=== PATIENT | male | born 1965 | race Caucasian/White ===

== ENCOUNTER 2017-03-04 17:33 | Emergency (ER) | payer OTHER ==
[~2017-03-04] VITALS: Ht 190.5 cm; Wt 66.8 kg
[~2017-03-04 17:33] MED LIST: SULF-154 PO
[2017-03-04 17:38] VITALS: BP 199/118; PULSE 99; RESP 16; TEMP 97.9; O2SAT 95
[2017-03-04 18:04] VITALS: BP 184/114; PULSE 86; RESP 18; O2SAT 94
[2017-03-04] MEDS ORDERED: SODIUM CHLORIDE 0.9% FLUSH 10 ML FLUSH IVF PRN (18:30)
[2017-03-04] MEDS ORDERED: predniSONE 20 MG TAB PO ONE (18:30)
[2017-03-04 18:31] VITALS: RESP 18; O2SAT 93
[2017-03-04 18:33] VITALS: BP 185/111; PULSE 84; RESP 20; O2SAT 93
[2017-03-04] MEDS: RESP: ALBUTEROL 2.5 MG/IPRATROPIUM 0.5 MG NEB (SCH) INH (18:44)
--- NOTE | 2017-03-04 19:43 | RADRPT ---
EXAM DATE/TIME: 03/04/2017 19:15 [place] COMPARISON: No previous studies available for comparison. INDICATIONS : Cough, congestion and shortness of breath. MEDICAL HISTORY : None. SURGICAL HISTORY : None. ENCOUNTER: Initial ACUITY: 3 days PAIN SCORE: 0/10 LOCATION: Bilateral chest FINDINGS: PA and lateral views of the chest show extreme hyperinflation lungs. Blunting of the costophrenic ang les bilaterally. Heart is normal in size. No discrete infiltrate. Bony structures are unremarkable. CONCLUSION: 1. COPD. 2. Blunting of the costophrenic angles could relate to scarring and the degree of hyperinflation, how ever, I cannot exclude small effusions. Willy Tello Jr., MD on March 04, 2017 at 19:40 Board Certified Radiologist. This report was verified electronically.
[2017-03-04 19:53] VITALS: BP 143/82; PULSE 101; RESP 20; O2SAT 94
[2017-03-04] MEDS ORDERED: PRED20 PO (19:54)
[2017-03-04] MEDS ORDERED: ZITHTAB PO (19:54)
[2017-03-04] MEDS ORDERED: VENTAER INH (19:54)
--- NOTE | 2017-03-04 19:54 | PD ---
HPI Chief Complaint: Respiratory Symptoms Time Seen by Provider: 18:24 Travel History International Travel<30 days: No Contact w/Intl Traveler<30days: No Traveled to known affect area: No History of Present Illness HPI This 51-year-old male is complaining of shortness of breath. He has not had trouble like this before. He does have a history of smoking cigarettes and stopped about a month ago. He has not had fever or chills. He has been coughing up some yellow phlegm. He has no history of heart disease. [facility] Past Medical History Medical History: Denies Significant Hx Diminished Hearing: No Tetanus Vaccination: Unknown Past Surgical History Surgical History: No Previous Surgery Social History Alcohol Use: Yes (daily) Tobacco Use: Yes (quit 1 month ago) Substance Use: No Allergies-Medications (Allergen,Severity, Reaction): Coded Allergies: penicillin G (Unverified Allergy, Mild, Hives, 03/04/17) Reported Meds & Prescriptions Reported Meds & Active Scripts Active Septra Ds (Trimethoprim/Sulfamethoxazole) Tab 1 Tab PO BID Review of Systems General / Constitutional: No: Fever, Chills Eyes: No: Diploplia HENT: No: Headaches Respiratory: Positive: Cough, Shortness of Breath, Wheezing Gastrointestinal: No: Vomiting, Diarrhea Genitourinary: No: Urgency Skin: No Rash, No Itching Neurologic: No: Weakness, Dizziness Physical Exam Narrative GENERAL: Thin male in mild respiratory distress. Oxygen saturations on arrival is 94 SKIN: Focused skin assessment warm/dry. HEAD: Atraumatic. Normocephalic. EYES: Pupils equal and round. No scleral icterus. No injection or drainage. ENT: No nasal bleeding or discharge. Mucous membranes pink and moist. NECK: Trachea midline. No JVD. CARDIOVASCULAR: Regular rate and rhythm. No murmur appreciated. RESPIRATORY: There is some accessory muscle use. There are bilateral expiratory wheezes GASTROINTESTINAL: Abdomen soft, non-tender, nondistended. Hepatic and splenic margins not palpable. MUSCULOSKELETAL: No obvious deformities. No clubbing. No cyanosis. No edema. NEUROLOGICAL: Awake and alert. No obvious cranial nerve deficits. Motor grossly within normal limits. Normal speech. PSYCHIATRIC: Appropriate mood and affect; insight and judgment normal. Data Data Last Documented VS Vital Signs Date Time Temp Pulse Resp B/P (MAP) Pulse Ox O2 Delivery O2 Flow Rate FiO2 03/04/17 18:33 84 20 185/111 (135) 93 Room Air 03/04/17 18:04 2.00 03/04/17 17:38 97.9 Orders Orders Electrocardiogram (03/04/17 18:29) Oximetry (03/04/17 18:29) Chest, Pa & Lat (03/04/17 18:29) Sodium Chloride 0.9% Flush (Ns Flush) (03/04/17 18:30) Albuterol-Ipratropium Neb (Duoneb Neb) (03/04/17 18:30) Prednisone (Deltasone) (03/04/17 18:30) MDM Medical Decision Making Medical Screen Exam Complete: Yes Emergency Medical Condition: Yes Medical Record Reviewed: Yes Differential Diagnosis Differential includes asthma, COPD, CHF, pneumonia Narrative Course Chest x-ray shows evidence of COPD. Patient has been given 3 nebulizer treatments and after initial dose of prednisone. Repeat examination shows some breathing better with clear lungs. He is stable for discharge. Diagnosis Primary Impression: COPD (chronic obstructive pulmonary disease) with acute bronchitis Scripts Albuterol 18 GM Inh (Ventolin Hfa 18 GM Inh) 90 Mcg/Act Aer 2 PUFF INH Q4-6H Y for SHORTNESS OF BREATH, #1 INHALER 0 Refills Prov: Naren Sanford MD 03/04/17 Azithromycin (Zithromax Z-Karthik) 250 Mg Dspk 250 MG PO DIRECTED for Infection, #1 DSPK 0 Refills 500 MG (2 tabs) day 1, then 1 tab days 2-5. Prov: Naren Sanford MD 03/04/17 Prednisone (Prednisone) 20 Mg Tab 60 MG PO DAILY for 5 Days, TAB 0 Refills Prov: Naren Sanford MD 03/04/17 Disposition: 01 DISCHARGE HOME Condition: Stable Naren Sanford MD Mar 04, 2017 19:54
[2017-03-04] MEDS ORDERED: AZITHROMYCIN 250 MG TAB PO ONE (20:00)
--- NOTE | 2017-03-05 11:17 | EKG ---
Date Performed: 03/04/2017 Time Performed: 18:42:44 PTAGE: 51 years EKG: Sinus rhythm NORMAL ECG NO PREVIOUS TRACING DOCTOR: Panfilo Fraga Interpretating Date/Time 03/05/2017 11:15:10
== END 2017-03-04 20:11 | disposition home or self-care (01) ==
LOC: PHEFT 17:33
DX: J44.0 Chronic obstructive pulmonary disease with (acute) lower respiratory infection (principal); J20.9 Acute bronchitis, unspecified; Z87.891 Personal history of nicotine dependence
CPT/HCPCS: 71020; 93005; 94640; 94664; 99285; J7512